=== PATIENT | female | born 1965 | race American Indian/Alaskan Native ===

== ENCOUNTER 2021-11-09 14:28 | Emergency (ER) | payer MEDICAID ==
--- NOTE | 2021-11-09 15:03 | Emergency Department Report ---
Blank Doc - Documentation Documentation: 56-year-old female that presents with hyperglycemia and cough. Fingerstick >400. 1- This is a initial triage assessment/medical screening only. Full assessment and work-up will be completed once the patient is in proper hospital gown, ED bed and in a private room setting. This initial assessment/diagnostic orders/clinical plan/ treatment(s) is/are subject to change based on pt's health status, clinical progression and re-assessment by fellow clinical providers in the ED. Further treatment and workup at subsequent clinical providers discretion. Patient/guardians urged not to elope from ED as their condition may be serious if not clinically assessed and managed. 2-labs 3-UA 4-chest x-ray The patient was evaluated in the emergency department for symptoms described in the history of present illness. He/she was evaluated in the context of the global COVID-19 pandemic, which necessitated consideration that the patient might be at risk for infection with the virus that causes COVID-19. Institutional protocols and algorithms that pertain to the evaluation of pat ients at risk for COVID-19 are in a state of rapid change based on information released by regulatory bodies including the CDC and federal and state organizations. These policies and algorithms were followed during the patient's care in the emergency department. Please note that these policies, procedures and recommendations changed on a rapid basis.
--- NOTE | 2021-11-09 15:26 | XRay Report ---
CHEST 2 VIEWS INDICATION / CLINICAL INFORMATION: cough. COMPARISON: None available. FINDINGS: SUPPORT DEVICES: None. HEART / MEDIASTINUM: No significant abnormality. LUNGS / PLEURA: No significant pulmonary or pleural abnormality. No pneumothorax. ADDITIONAL FINDINGS: No significant additional findings. IMPRESSION: 1. No acute findings. Signer Name: Michele Marcos MD Signed: 11/09/2021 3:22 PM Workstation Name: [id number]
[2021-11-09 16:29] LABS: Basophils % (Auto) 0.3 % (0.0-1.8); Eosinophils % (Auto) 0.3 % (0.0-4.3); Hematocrit 40.8 % (30.3-42.9); Hemoglobin 13.1 gm/dl (10.1-14.3); Lymphocytes # (Auto) 1.8 K/mm3 (1.2-5.4); Mean Corpuscular HGB Conc 32 % (30-34); Mean Corpuscular Volume 90 fl (79-97); Monocytes # (Auto) 0.3 K/mm3 (0.0-0.8); Monocytes % (Auto) 5.6 % (0.0-7.3); Red Blood Count 4.52 M/mm3 (3.65-5.03); Red Cell Distribution Width 14.7 % (13.2-15.2)
[2021-11-09 16:32] LABS: Calcium 9.3 mg/dL (8.4-10.2)
[2021-11-09 16:34] LABS: Platelet Count 159 K/mm3 (140-440)
[2021-11-09] MEDS ORDERED: SODIUM CHLORIDE 0.9% 1000 ML 1,000 ML IV ONE (18:12)
[2021-11-09] MEDS ORDERED: INSULIN REGULAR, HUMAN 100 UNITS/1 ML IV ONE (18:12)
--- NOTE | 2021-11-09 18:14 | Emergency Department Report ---
ED General Adult HPI - General Chief complaint: Hyperglycemia Stated complaint: COUGH/CONGESTION Time Seen by Provider: 11/09/21 15:02 Source: patient Mode of arrival: Ambulatory Limitations: No Limitations - History of Present Illness Initial comments: 56-year-old -[place] female presents to the emergency room complaining of cough sneezing runny nose reflux and elevated blood sugar. Patient states that she is vaccinated. She reports that she has been taking Conifer free cough medication but has been sucking on a regular cough drops. She states that she takes 70/30 insulin for diabetes as well as glipizide. States she has been using her inhaler. Patient reports that she has been to the emergency room recently and had a negative chest x-ray had a EKG. She denies any fever no chills no nausea no vomiting no diarrhea Onset/Timin -: week(s) Consistency: intermittent Improves with: none Worsens with: none Associated Symptoms: cough, other (Sneezing, rhinorrhea). denies: fever/chills, loss of appetite, nausea/vomiting Treatments Prior to Arrival: none - Related Data Previous Rx's Medication Instructions Recorded Last Taken Type Benzonatate [Tessalon Perles] 100 mg PO Q8HR PRN #15 capsule 11/09/21 Unknown Rx Allergies Allergy/AdvReac Type Severity Reaction Status Date / Time No Known Allergies Allergy Verified 11/09/21 14:53 ED Review of Systems ROS: Stated complaint: COUGH/CONGESTION Other details as noted in HPI Comment: All other systems reviewed and negative ED Past Medical Hx - Past Medical History Previous Medical History?: Yes Hx Hypertension: Yes Hx Diabetes: Yes - Surgical History Past Surgical History?: No - Medications Home Medications: Home Medications Medication Instructions Recorded Confirmed Last Taken Type Benzonatate [Tessalon Perles] 100 mg PO Q8HR PRN #15 capsule 11/09/21 Unknown Rx ED Physical Exam - General Limitations: No Limitations General appearance: alert, in no apparent distress - Head Head exam: Present: atraumatic, normocephalic - Eye Eye exam: Present: normal appearance - ENT ENT exam: Present: mucous membranes moist - Neck Neck exam: Present: normal inspection - Respiratory Respiratory exam: Present: normal lung sounds bilaterally, other (Intermittent coughing). Absent: respiratory distress - Cardiovascular Cardiovascular Exam: Present: regular rate, normal rhythm. Absent: systolic murmur, diastolic murmur, rubs, gallop - GI/Abdominal GI/Abdominal exam: Present: soft, normal bowel sounds - Extremities Exam Extremities exam: Present: normal inspection - Back Exam Back exam: Present: normal inspection - Neurological Exam Neurological exam: Present: alert, oriented X3 - Psychiatric Psychiatric exam: Present: normal affect, normal mood - Skin Skin exam: Present: warm, dry, intact, normal color. Absent: rash ED Course Vital Signs 11/09/21 14:53 Temperature 98.9 F Pulse Rate 79 Respiratory 16 Rate Blood Pressure 109/62 [Left] O2 Sat by Pulse 97 Oximetry ED Medical Decision Making - Lab Data Result diagrams: 11/09/21 15:57 11/09/21 15:57 - Radiology Data Radiology results: report reviewed Study Comments [facility] [address] [place] [address] XRay Report Signed Patient: ALEX MCCONNELL MR#: [id number] [birth year] : 1965 Acct:[id number] Age/Sex: 56 / F ADM Date: 11/09/21 Loc: ED Attending Dr: Ordering Physician: HEMANT CONWAY NP Date of Service: 11/09/21 Procedure(s): XR chest routine 2V Accession Number(s): [id number] cc: HEMANT CONWAY NP Fluoro Time In Minutes: CHEST 2 VIEWS INDICATION / CLINICAL INFORMATION: cough. COMPARISON: None available. FINDINGS: SUPPORT DEVICES: None. HEART / MEDIASTINUM: No significant abnormality. LUNGS / PLEURA: No significant pulmonary or pleural abnormality. No pneumothorax. ADDITIONAL FINDINGS: No significant additional findings. IMPRESSION: 1. No acute findings. Signer Name: Michele Marcos MD Signed: 11/09/2021 3:22 PM Workstation Name: [id number] Transcribed By: JASWINDER Dictated By: Michele Marcos MD Electronically Authenticated By: Michele Marcos MD Signed Date/Time: 11/09/211521 DD/ 21 TD/TT: - Medical Decision Making 56-year-old -[place] female presents to the emergency room complaining of cough sneezing runny nose reflux and elevated blood sugar. Patient states that she is vaccinated. She reports that she has been taking Conifer free cough medication but has been sucking on a regular cough drops. She states that she takes 70/30 insulin for diabetes as well as glipizide. States she has been using her inhaler. Patient reports that she has been to the emergency room recently and had a negative chest x-ray had a EKG. She denies any fever no chills no nausea no vomiting no diarrhea. Chest x-ray is negative for any acute findings. Patient ordered normal saline IV, insulin 10 units IV. Critical care attestation.: If time is entered above; I have spent that time in minutes in the direct care of this critically ill patient, excluding procedure time. ED Disposition Clinical Impression: Hyperglycemia due to type 2 diabetes mellitus, Cough in adult patient Disposition: HOME / SELF CARE / HOMELESS Is pt being admited?: No Does the pt Need Aspirin: No Condition: Stable Instructions: Type 2 Diabetes Mellitus, Self Care, Adult, [id number]-Lssf, Diabetes Mellitus Type 2 in Adults (ED) Additional Instructions: Is important to take your insulin as prescribed and do your adjustments as need ed for your blood sugars. Take Tessalon Perles as needed for cough. Stay away from sugary cough drops only takes testing free cough medication increase your water intake avoid sugary drinks such as orange juice apple juice sweet tea or sodas. Follow-up with your primary care provider. Prescriptions: Benzonatate [Tessalon Perles] 100 mg PO Q8HR PRN #15 capsule PRN Reason: Cough Referrals: Your, primary care provider [Other] - 3-5 Days Time of Disposition: 21:04
[2021-11-09] MEDS ORDERED: INSULIN REGULAR, HUMAN 100 UNITS/1 ML ONE (20:34)
[2021-11-09 21:56] VITALS: BP 120/68
== END 2021-11-09 21:52 | disposition home or self-care (01) ==
LOC: ED 14:28
DX: E11.65 Type 2 diabetes mellitus with hyperglycemia (principal); R05.9 Cough, unspecified
CPT/HCPCS: 36415; 71046; 80053; 82805; 82962; 85025; 96361; 96374; 99284; J7030; Q0162; Q9967; J1815

== ENCOUNTER 2021-11-14 18:06 | Emergency (ER) | payer MEDICAID ==
[2021-11-14 19:05] VITALS: BP 133/57
[2021-11-14] MEDS ORDERED: HYDROcodone/ACETAMINOPHEN 5-325 MG TAB PO ONE ×2 (19:05→23:20)
--- NOTE | 2021-11-14 19:05 | Emergency Department Report ---
<SUREKHA ARANDA - Last Filed: 11/14/21 20:57> ED Abdominal Pain HPI - General Chief Complaint: Abdominal Pain Stated Complaint: ABDOMINAL PAIN Time Seen by Provider: 11/14/21 19:04 Source: patient, family Mode of arrival: Ambulatory Limitations: No Limitations - History of Present Illness Initial Comments: 57-year-old female with a past medical history of chronic bronchitis, GERD, diabetes, hyperlipidemia and hypertension presents to the ER today with complaints of pain in her left upper quadrant area just underneath the left ribs. Patient states that the pain started about 4 days ago. She states that she noticed it when she stood up off the ground. She states that it feels like is getting worse. It seems to be worse when she turns but she states that is not pleuritic in nature. She states that she did vomit once yesterday. She denies any diarrhea and she states her bowel movements have been normal. She st ates that she has a chronic cough secondary to her reflux disease but nothing worse recently. She denies any shortness of breath. She denies any fever, chills, lower extremity swelling or calf pain. She states that she does not smoke. She denies any alcohol abuse or any illicit drug use. She states that only thing she has been taking for pain is Tylenol. MD Complaint: abdominal pain -: days(s) (4) - Related Data Previous Rx's Medication Instructions Recorded Last Taken Type Benzonatate [Tessalon Perles] 100 mg PO Q8HR PRN #15 capsule 11/09/21 Unknown Rx Dicyclomine [Bentyl] 20 mg PO QID #30 tablet 11/15/21 Unknown Rx Famotidine [Pepcid] 20 mg PO BID #60 tablet 11/15/21 Unknown Rx Ondansetron [Zofran Odt] 4 mg PO Q8HR PRN #20 tab.rapdis 11/15/21 Unknown Rx Sulfamethoxazole/Trimethoprim 1 each PO BID #20 tablet 11/15/21 Unknown Rx [Bactrim DS TAB] Allergies Allergy/AdvReac Type Severity Reaction Status Date / Time No Known Allergies Allergy Verified 11/09/21 14:53 ED Review of Systems Comment: All other systems reviewed and negative Constitutional: denies: chills, diaphoresis, fever, malaise, weakness Eyes: denies: eye pain, eye discharge, vision change ENT: denies: ear pain, throat pain, dental pain, hearing loss, epistaxis, congestion Respiratory: cough (Secondary to her reflux). denies: shortness of breath, wheezing Cardiovascular: denies: chest pain, palpitations, dyspnea on exertion, edema, syncope, paroxysmal nocturnal dyspnea Endocrine: no symptoms reported Gastrointestinal: abdominal pain, vomiting. denies: diarrhea, constipation, hematemesis, hematochezia Genitourinary: denies: urgency, dysuria, frequency, hematuria, discharge, abnormal menses, dyspareunia Musculoskeletal: denies: back pain, joint swelling, arthralgia Skin: denies: rash, lesions, change in color, change in hair/nails, pruritus Neurological: denies: headache, weakness, numbness, paresthesias, confusion, abnormal gait, vertigo Psychiatric: denies: auditory hallucinations, visual hallucinations, homicidal thoughts, suicidal thoughts Hematological/Lymphatic: denies: easy bleeding, easy bruising, swollen glands ED Past Medical Hx - Past Medical History Hx Hypertension: Yes Hx Diabetes: Yes - Medications Home Medications: Home Medications Medication Instructions Recorded Confirmed Last Taken Type Benzonatate [Tessalon Perles] 100 mg PO Q8HR PRN #15 capsule 11/09/21 Unknown Rx Dicyclomine [Bentyl] 20 mg PO QID #30 tablet 11/15/21 Unknown Rx Famotidine [Pepcid] 20 mg PO BID #60 tablet 11/15/21 Unknown Rx Ondansetron [Zofran Odt] 4 mg PO Q8HR PRN #20 tab.rapdis 11/15/21 Unknown Rx Sulfamethoxazole/Trimethoprim 1 each PO BID #20 tablet 11/15/21 Unknown Rx [Bactrim DS TAB] ED Physical Exam - General Limitations: No Limitations General appearance: alert, in no apparent distress, obese - Head Head exam: Present: atraumatic, normocephalic, normal inspection - Eye Eye exam: Present: normal appearance, PERRL, EOMI Pupils: Present: normal accommodation - Neck Neck exam: Present: normal inspection, full ROM - Respiratory Respiratory exam: Present: normal lung sounds bilaterally, chest wall tenderness (Mild tenderness to palpation to the left lower anterior rib). Absent: respiratory distress, wheezes, rales, rhonchi - Cardiovascular Cardiovascular Exam: Present: regular rate, normal rhythm, normal heart sounds - GI/Abdominal GI/Abdominal exam: Present: soft, tenderness (Mild tenderness palpation left upper abdominal area without guarding or rebound.). Absent: distended, guarding, rebound - Extremities Exam Extremities exam: Present: normal inspection, full ROM, normal capillary refill. Absent: pedal edema, calf tenderness - Neurological Exam Neurological exam: Present: alert, oriented X3, CN II-XII intact, normal gait - Psychiatric Psychiatric exam: Present: normal affect, normal mood - Skin Skin exam: Present: intact ED Medical Decision Making - Lab Data Result diagrams: 11/14/21 19:18 11/14/21 19:18 - Radiology Data Radiology results: report reviewed Patient: ALEX MCCONNELL MR#: [id number] [birth year] : 1965 Acct:[id number] Age/Sex: 56 / F ADM Date: 11/14/21 Loc: ED Attending Dr: Ordering Physician: SUREKHA ARANDA Date of Service: 11/14/21 Procedure(s): XR chest routine 2V Accession Number(s): [id number] cc: SUREKHA ARANDA Fluoro Time In Minutes: CHEST 2 VIEWS INDICATION / CLINICAL INFORMATION: LUQ pain/rib pain. Chest pain FINDINGS: SUPPORT DEVICES: None. HEART / MEDIASTINUM: No significant abnormality. LUNGS / PLEURA: No significant pulmonary or pleural abnormality. No pneumothorax. ADDITIONAL FINDINGS: No significant additional findings. IMPRESSION: 1. No acute findings. Signer Name: Rafael Holbrook MD Signed: 11/14/2021 7:50 PM Workstation Name: [id number] Transcribed By: Dictated By: Rafael Holbrook MD Electronically Authenticated By: Rafael Holbrook MD Signed Date/Time: 11/14/211949 DD/ 49 TD/TT: - Medical Decision Making The patient's care has been transferred to and accepted by Yamil Garg]. We discussed: The patient's chief complaints; labs and imaging that have been completed and those that are still pending; any treatment provided and the patient's response to treatment; any significant change in condition; the treatment plan prior to the transfer of care. The accepting provider will follow up on all pending labs and imaging and make any necessary changes to the current impression and/or treatment plan. The accepting physician/midlevel is now responsible for the patient's care and final disposition. ED Disposition Clinical Impression: Acute abdominal pain in left upper quadrant, Acute urinary tract infection Hyperglycemia due to type 2 diabetes mellitus Qualifiers: Diabetes mellitus director long term care insulin use: without custodial use Qualified Co de(s): E11.65 - Type 2 diabetes mellitus with hyperglycemia Disposition: HOME / SELF CARE / HOMELESS Condition: Stable Instructions: Abdominal Pain (ED), Diabetes Mellitus Type 2 in Adults (ED), Hyperglycemia, Wsqu-oo-Dpcy, Abdominal Pain, Adult, Lstd-we-[id number], Type 2 Diabetes Mellitus, Self Care, Adult, Urinary Tract Infection, Adult, Sasv-[id number]-Hmuq Additional Instructions: All lab test results were reviewed and are all nonactionable except for hyperglycemia due to type 2 diabetes which is poorly controlled, and acute urinary tract infection in urinalysis. Chest x-ray showed no acute cardiopulmonary abnormalities or pneumonitis. Abdomen pelvis CT scan with contrast showed no acute abnormalities. Therefore your symptoms are likely due to GERD complications or muscle strain of the left upper abdominal wall. Therefore take medication with food, drink plenty of fluids and follow-up with your primary care physician in 7 to 10 days for reevaluation. Return to the ED immediately if symptoms get worse. Prescriptions: Sulfamethoxazole/Trimethoprim [Bactrim DS TAB] 1 each PO BID #20 tablet Dicyclomine [Bentyl] 20 mg PO QID #30 tablet Famotidine [Pepcid] 20 mg PO BID #60 tablet Ondansetron [Zofran Odt] 4 mg PO Q8HR PRN #20 tab.rapdis PRN Reason: Nausea Referrals: [facility] [Provider Group] - 3-5 Days Forms: Work/School Release Form(ED) Print Language: MALTESE <JOE GRAG - Last Filed: 11/15/21 03:59> ED Review of Systems ROS: Stated complaint: ABDOMINAL PAIN Other details as noted in HPI ED Course Vital Signs 11/14/21 11/14/21 18:55 23:54 Temperature 98.5 F Pulse Rate 61 Respiratory 17 18 Rate Blood Pressure 133/57 O2 Sat by Pulse 99 Oximetry ED Medical Decision Making - Lab Data Result diagrams: 11/14/21 19:18 11/14/21 19:18 - Radiology Data [facility] [address] [place] [address] Cat Scan Report Signed Patient: ALEX MCCONNELL MR#: [id number] 65 : 1965 Acct:[id number] Age/Sex: 56 / F ADM Date: 11/14/21 Loc: ED Attending Dr: Ordering Physician: SUREKHA ARANDA Date of Service: 11/14/21 Procedure(s): CT abdomen pelvis w con Accession Number(s): [id number] cc: SUREKHA ARANDA CT ABDOMEN AND PELVIS WITH CONTRAST INDICATION / CLINICAL INFORMATION: Pt complains of severe L.U.Q. abdominal pain. TECHNIQUE: Axial CT images were obtained through the abdomen and pelvis after IV contrast. All CT scans at this location are performed using CT dose reduction for ALARA by means of automated exposure control. COMPARISON: None available. FINDINGS: LOWER CHEST: No significant abnormality. LIVER: No significant abnormality. GALLBLADDER: No significant abnormality. PANCREAS: No significant abnormality. SPLEEN: No significant abnormality. ADRENALS: No significant abnormality. RIGHT KIDNEY / URETER: Multiple simple renal cysts. LEFT KIDNEY / URETER: Multiple tiny simple renal cysts. STOMACH / SMALL BOWEL: Small hiatal hernia. COLON: No significant abnormality. APPENDIX: No significant abnormality. PERITONEUM: No free fluid, free air or organized collection. LYMPH NODES: No significant adenopathy. AORTA / ARTERIES/ VEINS: No significant abnormality. URINARY BLADDER: No significant abnormality. REPRODUCTIVE ORGANS: No significant abnormality. ADDITIONAL FINDINGS: None. SKELETAL SYSTEM: No significant abnormality. IMPRESSION: 1. No acute abnormality. 2. Chronic findings as above Signer Name: Broderick Medina MD Signed: 11/14/2021 10:09 PM Workstation Name: [id number] Transcribed By: SB Dictated By: BRODERICK MEDINA MD Electronically Authenticated By: BRODERICK MEDINA MD Signed Date/Time: 11/14/212208 DD/ 05 TD/TT: - Medical Decision Making I assumed care of the patient from Ms. Saima Iqbal PA-C at shift change. Patient had presented to the ED with a left upper quadrant pain, and was extensively worked up in the ED. At the time of shift change, the abdomen pelvis CT scan with contrast results were pending and patient was receiving normal saline 1 L IV bolus x1 with 7 units of regular human insulin.. On reevaluation, patient's pain is well controlled medication. Abdomen pelvis CT scan with contrast showed no acute abnormalities. Patient was given another dose of normal saline 1 L IV bolus and at the time of discharge patient's sugar was well controlled with medication. Patient was discharged home and advised to continue taking her medications and to follow-up with her primary care physician in 5 to 7 days for reevaluation or return to the ED immediately if symptoms get worse - Differential Diagnosis Hyperglycemia; gastritis; GERD; ACS; muscle strain Critical care attestation.: If time is entered above; I have spent that time in minutes in the direct care of this critically ill patient, excluding procedure time. ED Disposition Is pt being admited?: No Does the pt Need Aspirin: No Time of Disposition: 03:57
--- NOTE | 2021-11-14 19:55 | XRay Report ---
CHEST 2 VIEWS INDICATION / CLINICAL INFORMATION: LUQ pain/rib pain. Chest pain FINDINGS: SUPPORT DEVICES: None. HEART / MEDIASTINUM: No significant abnormality. LUNGS / PLEURA: No significant pulmonary or pleural abnormality. No pneumothorax. ADDITIONAL FINDINGS: No significant additional findings. IMPRESSION: 1. No acute findings. Signer Name: Rafael Holbrook MD Signed: 11/14/2021 7:50 PM Workstation Name: [id number]
[2021-11-14 20:00] LABS: Basophils # (Auto) 0.1 K/mm3 (0.0-0.1); Basophils % (Auto) 1.5 % (0.0-1.8); Eosinophils % (Auto) 0.6 % (0.0-4.3); Hematocrit 39.5 % (30.3-42.9); Hemoglobin 12.7 gm/dl (10.1-14.3); Lymphocytes # (Auto) 2.1 K/mm3 (1.2-5.4); Lymphocytes % (Auto) 25.6 % (13.4-35.0); Mean Corpuscular HGB Conc 32 % (30-34); Mean Corpuscular Volume 90 fl (79-97); Monocytes # (Auto) 0.5 K/mm3 (0.0-0.8); Monocytes % (Auto) 6.6 % (0.0-7.3); Platelet Count 151 K/mm3 (140-440); Red Blood Count 4.39 M/mm3 (3.65-5.03); Red Cell Distribution Width 14.2 % (13.2-15.2)
[2021-11-14 20:06] LABS: Alanine Aminotransferase 21 units/L (7-56); Albumin 3.9 g/dL (3.9-5); BUN/Creatinine Ratio 16; Blood Urea Nitrogen 19 mg/dL (7-17); Calcium 10.3 mg/dL (8.4-10.2); Hemolysis Index 19
[2021-11-14] MEDS ORDERED: SODIUM CHLORIDE 0.9% 1000 ML 1,000 ML IV ONE ×2 (20:16→22:23)
[2021-11-14] MEDS ORDERED: INSULIN REGULAR, HUMAN 100 UNITS/1 ML IV ONE ×2 (20:32→23:20)
--- NOTE | 2021-11-14 22:13 | Cat Scan Report ---
CT ABDOMEN AND PELVIS WITH CONTRAST INDICATION / CLINICAL INFORMATION: Pt complains of severe L.U.Q. abdominal pain. TECHNIQUE: Axial CT images were obtained through the abdomen and pelvis after IV contrast. All CT sc ans at this location are performed using CT dose reduction for ALARA by means of automated exposure c ontrol. COMPARISON: None available. FINDINGS: LOWER CHEST: No significant abnormality. LIVER: No significant abnormality. GALLBLADDER: No significant abnormality. PANCREAS: No significant abnormality. SPLEEN: No significant abnormality. ADRENALS: No significant abnormality. RIGHT KIDNEY / URETER: Multiple simple renal cysts. LEFT KIDNEY / URETER: Multiple tiny simple renal cysts. STOMACH / SMALL BOWEL: Small hiatal hernia. COLON: No significant abnormality. APPENDIX: No significant abnormality. PERITONEUM: No free fluid, free air or organized collection. LYMPH NODES: No significant adenopathy. AORTA / ARTERIES/ VEINS: No significant abnormality. URINARY BLADDER: No significant abnormality. REPRODUCTIVE ORGANS: No significant abnormality. ADDITIONAL FINDINGS: None. SKELETAL SYSTEM: No significant abnormality. IMPRESSION: 1. No acute abnormality. 2. Chronic findings as above Signer Name: Broderick Medina MD Signed: 11/14/2021 10:09 PM Workstation Name: [id number]
[2021-11-14 23:37] LABS: Bilirubin,Urine NEG (Negative); Blood,Urine SM (Negative); Color,Urine Straw (Yellow); Mucus,Urine FEW /HPF; Protein,Urine <15 mg/dL mg/dL (Negative); Urobilinogen,Urine < 2.0 mg/dL (<2.0)
[2021-11-15] MEDS ORDERED: SODIUM CHLORIDE 0.9% 1000 ML 1,000 ML ONE (01:52)
== END 2021-11-15 05:50 | disposition home or self-care (01) ==
LOC: ED 18:06
DX: R10.12 Left upper quadrant pain (principal); N39.0 Urinary tract infection, site not specified; E11.65 Type 2 diabetes mellitus with hyperglycemia; I10 Essential (primary) hypertension; J42 Unspecified chronic bronchitis; E78.5 Hyperlipidemia, unspecified
CPT/HCPCS: 36415; 71046; 74177; 80053; 81001; 82962; 83690; 84484; 85025; 87086; 99284; J7030; Q9967; Q0162; J1815